=== PATIENT | female | born 1950 | race Caucasian/White ===

== ENCOUNTER 2016-06-02 21:06 | Emergency (ER) | payer MEDICARE, OTHER ==
[2016-07-03] MEDS ORDERED: ASPIR 8181 MG PO (09:10)
[2016-07-03] MEDS ORDERED: NITROQUICK0.4 MG SL (09:10)
[2016-07-03] MEDS ORDERED: METOPROLOL TART25 MG PO (09:11)
[2016-07-03] MEDS ORDERED: PRINIVIL10 MG PO (09:11)
[2016-07-03] MEDS ORDERED: B-121000 MCG PO (09:11)
[2016-07-03] MEDS ORDERED: LOFIBRA160 MG PO (09:12)
[2016-07-03] MEDS ORDERED: PROTONIX40 MG PO (09:12)
[2016-07-03] MEDS ORDERED: HYDROCODON-ACE1 EAC4 PO (09:13)
[2016-07-03] MEDS ORDERED: ACETAMINOPHEN325 MG PO (09:13)
[2016-07-03] MEDS ORDERED: LOMOTIL 2.5-0.1 EACH PO (09:14)
[2016-07-03] MEDS ORDERED: PREDNISONE20 MG PO (09:14)
[2016-07-03] MEDS ORDERED: GLUCOTROL5 MG PO (09:15)
== END 2016-06-03 00:25 | disposition short-term general hospital (02) ==
LOC: ER 21:06
DX: I46.9 Cardiac arrest, cause unspecified (principal); R09.02 Hypoxemia; I25.2 Old myocardial infarction; E11.9 Type 2 diabetes mellitus without complications; F17.210 Nicotine dependence, cigarettes, uncomplicated; Z90.49 Acquired absence of other specified parts of digestive tract; Z98.890 Other specified postprocedural states
CPT/HCPCS: 36415; 51702; 87502; 92950; 94640; 96365; 96366; 96368; 96375; J3370

== ENCOUNTER 2016-06-23 09:16 | Inpatient (IN) | payer MEDICARE, OTHER ==
[2016-07-03] MEDS ORDERED: NITROQUICK0.4 MG SL (09:10)
[2016-07-03] MEDS ORDERED: ASPIR 8181 MG PO (09:10)
[2016-07-03] MEDS ORDERED: METOPROLOL TART25 MG PO (09:11)
[2016-07-03] MEDS ORDERED: PRINIVIL10 MG PO (09:11)
[2016-07-03] MEDS ORDERED: B-121000 MCG PO (09:11)
[2016-07-03] MEDS ORDERED: LOFIBRA160 MG PO (09:12)
[2016-07-03] MEDS ORDERED: PROTONIX40 MG PO (09:12)
[2016-07-03] MEDS ORDERED: HYDROCODON-ACE1 EAC4 PO (09:13)
[2016-07-03] MEDS ORDERED: ACETAMINOPHEN325 MG PO (09:13)
[2016-07-03] MEDS ORDERED: LOMOTIL 2.5-0.1 EACH PO (09:14)
[2016-07-03] MEDS ORDERED: PREDNISONE20 MG PO (09:14)
[2016-07-03] MEDS ORDERED: GLUCOTROL5 MG PO (09:15)
== END 2016-07-02 16:50 | disposition home or self-care (01) | DRG 386 ==
LOC: ER 09:16 → MED 15:47
PROVIDERS: ADMIT Internal Medicine
PROC: 30233N1 Transfusion of Nonautologous Red Blood Cells into Peripheral Vein, Percutaneous Approach (ICD-10-PCS; 2016-06-23)
PROC: 30233N1 Transfusion of Nonautologous Red Blood Cells into Peripheral Vein, Percutaneous Approach (ICD-10-PCS; 2016-06-24)
PROC: 30233N1 Transfusion of Nonautologous Red Blood Cells into Peripheral Vein, Percutaneous Approach (ICD-10-PCS; 2016-06-25)
PROC: 0DJ08ZZ Inspection of Upper Intestinal Tract, Via Natural or Artificial Opening Endoscopic (ICD-10-PCS; principal; 2016-06-26)
PROC: 02HV33Z Insertion of Infusion Device into Superior Vena Cava, Percutaneous Approach (ICD-10-PCS; 2016-06-26)
PROC: B548ZZA Ultrasonography of Superior Vena Cava, Guidance (ICD-10-PCS; 2016-06-26)
DX: K50.911 Crohn's disease, unspecified, with rectal bleeding (principal); K92.2 Gastrointestinal hemorrhage, unspecified; D62 Acute posthemorrhagic anemia; E11.9 Type 2 diabetes mellitus without complications; I25.10 Atherosclerotic heart disease of native coronary artery without angina pectoris; Z95.5 Presence of coronary angioplasty implant and graft; J44.9 Chronic obstructive pulmonary disease, unspecified; I10 Essential (primary) hypertension; Z86.74 Personal history of sudden cardiac arrest; Z90.49 Acquired absence of other specified parts of digestive tract; Z79.82 Long term (current) use of aspirin; Z79.84 Long term (current) use of oral hypoglycemic drugs; Z79.899 Other long term (current) drug therapy; Z83.3 Family history of diabetes mellitus; F17.210 Nicotine dependence, cigarettes, uncomplicated; K44.9 Diaphragmatic hernia without obstruction or gangrene; E87.6 Hypokalemia; E83.42 Hypomagnesemia; E78.5 Hyperlipidemia, unspecified; R79.1 Abnormal coagulation profile; Z87.11 Personal history of peptic ulcer disease
CPT/HCPCS: 36415; 87507; C1751; J2550; P9021; Q9967

== ENCOUNTER 2016-09-08 17:41 | Emergency (ER) | payer MEDICARE, OTHER ==
[~2016-09-08 17:41] MED LIST: ACETAMINOPHEN325 MG PO; ASPIR 8181 MG PO; B-121000 MCG PO; GLUCOTROL5 MG PO; HYDROCODON-ACE1 EAC4 PO; LOFIBRA160 MG PO; LOMOTIL 2.5-0.1 EACH PO; METOPROLOL TART25 MG PO; NITROQUICK0.4 MG SL; PREDNISONE20 MG PO; PRINIVIL10 MG PO; PROTONIX40 MG PO
== END 2016-09-08 23:40 | disposition home or self-care (01) ==
LOC: ER 17:41
DX: J44.1 Chronic obstructive pulmonary disease with (acute) exacerbation (principal); E87.6 Hypokalemia; E11.9 Type 2 diabetes mellitus without complications; I25.2 Old myocardial infarction; F17.210 Nicotine dependence, cigarettes, uncomplicated; Z95.5 Presence of coronary angioplasty implant and graft; Z90.49 Acquired absence of other specified parts of digestive tract; Z79.82 Long term (current) use of aspirin; Z79.84 Long term (current) use of oral hypoglycemic drugs; Z79.899 Other long term (current) drug therapy
CPT/HCPCS: 36415

== ENCOUNTER 2016-09-25 14:02 | Emergency (ER) | payer MEDICARE, OTHER | END 2016-09-25 17:15 | disposition home or self-care (01) | LOC: ER 14:02 | DX: R07.89 Other chest pain (principal); J44.9 Chronic obstructive pulmonary disease, unspecified; I10 Essential (primary) hypertension; I25.10 Atherosclerotic heart disease of native coronary artery without angina pectoris; E11.9 Type 2 diabetes mellitus without complications; K50.90 Crohn's disease, unspecified, without complications; I25.2 Old myocardial infarction; F17.210 Nicotine dependence, cigarettes, uncomplicated; Z90.49 Acquired absence of other specified parts of digestive tract; Z79.82 Long term (current) use of aspirin; Z79.84 Long term (current) use of oral hypoglycemic drugs; Z79.899 Other long term (current) drug therapy | CPT/HCPCS: 36415; 96360 ==

== ENCOUNTER 2016-10-13 02:15 | Emergency (ER) | payer MEDICARE, OTHER | END 2016-10-13 09:43 | disposition short-term general hospital (02) | LOC: ER 02:15 | DX: M25.551 Pain in right hip (principal); M25.552 Pain in left hip; I24.9 Acute ischemic heart disease, unspecified; J44.9 Chronic obstructive pulmonary disease, unspecified; D64.9 Anemia, unspecified; I25.10 Atherosclerotic heart disease of native coronary artery without angina pectoris; I10 Essential (primary) hypertension; E11.9 Type 2 diabetes mellitus without complications; K27.9 Peptic ulcer, site unspecified, unspecified as acute or chronic, without hemorrhage or perforation; F17.210 Nicotine dependence, cigarettes, uncomplicated; W19.XXXA Unspecified fall, initial encounter; Y92.009 Unspecified place in unspecified non-institutional (private) residence as the place of occurrence of the external cause | CPT/HCPCS: 36415; 96374; 96375 ==